=== PATIENT | male | born 1990 | race American Indian/Alaskan Native ===

== ENCOUNTER 2018-08-31 12:34 | Emergency (ER) | payer MEDICAID ==
[2018-08-31 13:45] LABS: Basophils % (Auto) 0.4 % (0.0-1.8); Eosinophils # (Auto) 0.1 K/mm3 (0.0-0.4); Hematocrit 40.9 % (35.5-45.6); Hemoglobin 13.9 gm/dl (11.8-15.2); Lymphocytes # (Auto) 2.3 K/mm3 (1.2-5.4); Lymphocytes % (Auto) 34.3 % (13.4-35.0); Mean Corpuscular HGB Conc 34 % (32-34); Mean Corpuscular Volume 88 fl (84-94); Monocytes # (Auto) 0.6 K/mm3 (0.0-0.8); Monocytes % (Auto) 8.9 % (0.0-7.3); Platelet Count 248 K/mm3 (140-440); Red Blood Count 4.64 M/mm3 (3.65-5.03); Red Cell Distribution Width 14.2 % (13.2-15.2)
[2018-08-31 14:24] VITALS: BP 133/98
[2018-08-31 14:26] LABS: Blood Urea Nitrogen 12 mg/dL (9-20)
[2018-08-31 14:27] LABS: BUN/Creatinine Ratio 13; Calcium 9.2 mg/dL (8.4-10.2); Hemolysis Index 5
[2018-08-31 14:42] LABS: Bilirubin,Urine NEG (Negative); Blood,Urine SM (Negative); Color,Urine Yellow (Yellow); Mucus,Urine FEW /HPF; Protein,Urine <15 mg/dL mg/dL (Negative); Urobilinogen,Urine < 2.0 mg/dL (<2.0)
[2018-08-31 14:47] LABS: Amphetamine Screen,Urine PRESUMPTIVE NEGATIVE; Benzodiazepines Screen,Urine PRESUMPTIVE NEGATIVE; Cocaine Screen,Urine PRESUMPTIVE NEGATIVE; Methadone Screen,Urine PRESUMPTIVE NEGATIVE; Opiate Screen,Urine PRESUMPTIVE NEGATIVE
[2018-08-31 15:10] LABS: Cannabinoid Screen,Urine PRESUMPTIVE POSITIVE
--- NOTE | 2018-08-31 15:10 | Emergency Department Report ---
HPI - General Chief Complaint: Psych Time Seen by Provider: 08/31/18 14:35 - HPI HPI: 28-year-old after [place] male presents to the emergency department with the complaint of auditory hallucinations and being out of his medication for schizophrenia. The patient says it is been about 3 months since he last had the medication because "we have been traveling." His mother is currently at bedside. Patient says that he has nonspecific auditory hallucinations but denies any visual hallucinations. He denies any suicidal or homicidal ideations. He says that he has been having trouble sleeping because his mind is constantly racing. He is on an Invega shot every three months and I think that there is another medication but they cannot currently remember the name. He follows up at [facility]. ED Past Medical Hx - Past Medical History Hx Psychiatric Treatment: Yes (Schizophrenia) Additional medical history: Dyslexia - Surgical History Past Surgical History?: No - Social History Smoking Status: Current Every Day Smoker Substance Use Type: Marijuana - Medications Home Medications: Home Medications Medication Instructions Recorded Confirmed Last Taken Type ALPRAZolam [Xanax TAB] 0.5 mg PO QHS PRN #2 tablet 08/31/18 Unknown Rx ED Review of Systems ROS: Stated complaint: MEDICATION REFILL Other details as noted in HPI Comment: All other systems reviewed and negative Constitutional: denies: chills, fever Eyes: denies: eye pain, vision change ENT: denies: ear pain, throat pain Respiratory: denies: cough, shortness of breath Cardiovascular: denies: chest pain, palpitations Gastrointestinal: denies: abdominal pain, vomiting Genitourinary: denies: dysuria, discharge Musculoskeletal: denies: back pain, arthralgia Skin: denies: rash, lesions Neurological: denies: headache, weakness Psychiatric: auditory hallucinations. denies: visual hallucinations, homicidal thoughts, suicidal thoughts Physical Exam - Physical Exam Vital Signs: Vital Signs 08/31/18 08/31/18 12:45 14:23 Temperature 98.7 F 98.5 F Pulse Rate 78 69 Respiratory 16 20 Rate Blood Pressure 134/85 Blood Pressure 133/98 [Left] O2 Sat by Pulse 99 99 Oximetry Physical Exam: GENERAL: The patient is well-developed well-nourished. HENT: Normocephalic. Atraumatic. Patient has moist mucous membranes. EYES: Extraocular motions are intact. NECK: Supple. Trachea is midline. CHEST/LUNGS: Clear to auscultation. There is no respiratory distress noted. HEART/CARDIOVASCULAR: Regular. There is no tachycardia. There is no murmur. ABDOMEN: Abdomen is soft, nontender. Patient has normal bowel sounds. There is no abdominal distention. SKIN: Skin is warm and dry. NEURO: The patient is awake, alert, and oriented. The patient is cooperative. The patient has no focal neurologic deficits. The patient has normal speech. MUSCULOSKELETAL: There is no tenderness or deformity. There is no limitation range of motion. There is no evidence of acute injury. PSYCH: Patient has pressured speech and is slightly disorganized. ED Course Vital Signs 08/31/18 08/31/18 12:45 14:23 Temperature 98.7 F 98.5 F Pulse Rate 78 69 Respiratory 16 20 Rate Blood Pressure 134/85 Blood Pressure 133/98 [Left] O2 Sat by Pulse 99 99 Oximetry ED Medical Decision Making - Lab Data Result diagrams: 08/31/18 13:28 08/31/18 13:28 - Medical Decision Making This patient presents to the emergency department with the need for a mental health evaluation. He has a history of schizophrenia and has been noncompliant with medication. He is having auditory hallucinations but denies any visual hallucinations, suicidal ideations or homicidal ideations. The patient has pressured speech and some disorganized and tangential thoughts, but is otherwise oriented to person, place and time. Patient's labs were unremarkable. Vital signs stable throughout his ED course. While I think the patient would benefit from stabilization on medication and close psychiatric follow-up, he does not appear to meet criteria to be made a 1013 or require involuntary inpatient psychiatric admission. The patient is mostly concerned with his recent insomnia and is more interested in outpatient follow-up. He should be able to follow up with his psychiatrist at [facility], but will also be given a referral for the [facility] facility, which has walk-in appointments including tomorrow morning. The patient was given 2 pills, as a prescription, of Xanax to help him at night with the racing thoughts and hopefully help him obtain some sleep. Otherwise, he will return to the emergency Department with any worsening of his symptoms or with any acute distress. - Differential Diagnosis schizophrenia, schizoaffective, bipolar disorder, depression, substance abu Critical Care Time: No Critical care attestation.: If time is entered above; I have spent that time in minutes in the direct care of this critically ill patient, excluding procedure time. ED Disposition Clinical Impression: Noncompliance with medication regimen Schizophrenia Qualifiers: Schizophrenia type: unspecified Qualified Code(s): F20.9 - Schizophrenia, unspecified Disposition: DC-01 TO HOME OR SELFCARE Is pt being admited?: No Condition: Stable Instructions: Schizophrenia (ED) Additional Instructions: Follow-up with either [facility] or the [facility] tomorrow regarding res tarting your medications. Return to the emergency department immediately with any worsening of your symptoms, thoughts of harming yoruself or others, any acute distress. You have been prescribed a medication that is sedating and therefore should not be taken prior to driving, working, and responsible for children and in no way should be mixed with alcohol of any quantity. Prescriptions: ALPRAZolam [Xanax TAB] 0.5 mg PO QHS PRN #2 tablet PRN Reason: Insomnia Referrals: [facility] [Outside] - [facility] Time of Disposition: 16:16
== END 2018-08-31 16:15 | disposition home or self-care (01) ==
LOC: ED 12:34
DX: F20.9 Schizophrenia, unspecified (principal); F17.200 Nicotine dependence, unspecified, uncomplicated; F12.10 Cannabis abuse, uncomplicated
CPT/HCPCS: 36415; 80048; 80307; 81001; 85025; 99284; G0480; 80320